=== PATIENT | male | born 1995 | race African-American/Black ===

== ENCOUNTER 2021-07-08 02:14 | Emergency (ER) | payer OTHER ==
[~2021-07-08] VITALS: Ht 188 cm; Wt 81.7 kg
[~2021-07-08 02:14] MED LIST: FLONASE 0.05%50 MCG NASAL; IBUPROFEN 600600 M1 PO; KEFLEX500 MG PO; NOHOMEMEDICATIONS; ONDANSETRON HCL4 M2 PO
[2021-07-08] MEDS ORDERED: NORCO5 PO ×2 (03:12→13:06)
[2021-07-08] MEDS ORDERED: BACTRIM DS TAB1 EACH PO ×2 (03:12→13:06)
[2021-07-08 03:23] VITALS: BP 127/82
== END 2021-07-08 03:24 | disposition home or self-care (01) ==
LOC: ER 02:14
DX: L02.415 Cutaneous abscess of right lower limb (principal); F12.90 Cannabis use, unspecified, uncomplicated